=== PATIENT | male | born 2000 | race Caucasian/White ===

== ENCOUNTER 2025-03-20 15:13 | Emergency (ER) | payer BC, SELFPAY ==
--- OUTSIDE RECORDS SUMMARY | 2025-03-20 15:16 | XMS_ITS | Clinical Summary ---
Author Organization [facility] Address [address] [place] [address] Care Team Providers Care Print Production Associate Name Role Phone Freddy Bowden P.A.-C. Primary Care Provider Source Comments Patient records contain information from all sites at [facility]. For routine questions regarding patient records, call [phone] during business hours, M-F 8:00 AM - 5:00 PM Central Time. Record requests for emergency care only can be directed to [phone] at any time.[facility] Allergies No known active allergies Medications * This document contains information received from the source organization and may not represent a complete record from that organization. No known medications Active Problems Problem Noted Date Diagnosed Date Anxiety 04/22/2019 Proteinuria 08/22/2012 Abuse Drug 07/05/2012 Immunizations Immunization Administration Dates Next Due DTaP (Infanrix, Tripedia) 04/13/2003 HepA Pediatric/Adolescent 11/24/2010 HepA, Pediatric Unspecified 11/24/2010 IPV 04/13/2003 MCV4 (Menactra)(Discontinued) 11/24/2010 MMR 04/13/2003 Tdap 05/03/2010 SANKET 05/03/2010 influenza trivalent vaccine (6 months and older) (PF) 06/04/2009 Family History Medical History Relation Name Comments Healthy adult Brother Heart disease Father COPD Maternal Grandfather COPD Maternal Grandmother Healthy adult Mother Relation Name Status Comments Brother Father Maternal Grandfather Maternal Grandmother Mother Social History Tobacco Use Types Packs/Day Years Used Date Smoking Tobacco: Former Smokeless Tobacco: Never Tobacco Cessation:Counseling Given: Not Answered Humiliation, Afraid, Rape, and Kick questionnair e Answer Date Recorded Fear of Current or Ex-Partner No Emotionally Abused No 04/22/2019 Physically Abused No 04/22/2019 Sexually Abused No 04/22/2019 Hunger Vital Sign Answer Date Recorded Worried About Running Out of Food in the Last Ye ar Often true 04/22/2019 Ran Out of Food in the Last Year Sometimes true 04/22/2019 PRAPARE - Transportation Answer Date Re corded Lack of Transportation (Medical) Yes 04/22/2019 Lack of Transportation (Non-Medical) Yes 04/22/2019 Depression Answer Date Recor ded PHQ-9 Total Score (max 27) 19 11/03 Education Answer Date Recorded What is the highest level of school you have completed or the highest degree you have received? 10th grade 04/22/2019 Sex and Gender Information Value Date Recorded Sex Assigned at Not on file Legal Sex Male 4:41 AM MEDICAL CODING MANAGER Gender Identity Not on file Sexual Orientation Not on file Last Filed Vital Signs Vital Sign Reading Time Taken Comments Blood Pressure 110/68 05/03/2023 3:49 PM CDT Pulse 81 05/03/2023 3:49 PM CDT Temperature 36.2 C (97.2 F) 05/03/2023 3:49 PM CDT Respiratory Rate 20 05/03/2023 3:49 PM CDT Oxygen Saturation - - Inhaled Oxygen Concentration - - Weight 51.4 kg (113 lb 5.1 oz) 05/03/2023 3:49 P M CDT Height 162 cm (5' 3.78) 05/03/2023 3:49 PM CDT Body Mass Index 19.59 05/03/2023 3:49 PM CDT Plan of Treatment Health Maintenance Due Date Last Done Comments IPV Vaccines (2 of 3 - 4-dose series) 05/11/2003 04/13/2003 Hepatitis A Vaccines (2 of 2 - Risk 2-dose series) 05/27/2011 11/24/2010, 11/24/2010 HPV Vaccines (1 - Male 3-dose series) 2013 Hepatitis B Vaccines (1 of 3 - 19+ 3-dose series) 2017 DTaP,Tdap,and Td Vaccines (3 - Td or Tdap) 05/03/2020 05/03/2010, 04/13/2003 COVID-19 Vaccine (2023-25 season) 2024 Depression Screening (Annual PHQ-2) 09/03/2024 Influenza Vaccine (#1) 2025 06/04/2009 HIV Screening Completed 11/04/2019 Hepatitis B Screening Discontinued 11/04/2019 Hepatitis C Screening Completed 11/04/2019 Pneumococcal vaccine (0-49 years) Aged Out No longer eligible b ased on patient's age to complete this topic Procedures Procedure Name Priority Date/Time Associated Diagnosis Comments HCV AB SCRN W/REFLEX TO HCV PCR, S Routine 11/04/2019 5:17 PM MEDICAL CODING MANAGER Screening For Venereal Disease HIV-1/-2 AG AND AB SCREEN, PLASMA Routine 11/04/2019 5:17 PM MEDICAL CODING MANAGER Screening For Venereal Disease HEPATITIS B SURFACE ANTIGEN Routine 11/04/2019 5:17 PM MEDICAL CODING MANAGER Screening For Venereal Disease from Last 3 Months or Most Recently Relevant to Health Maintenance Results * HIV-1/-2 Ag and Ab Screen, Plasma (11/04/2019 5:17 PM MEDICAL CODING MANAGER) HIV Ag/Ab Screen, P Negative Negative 11/05/2019 1:55 PM MEDICAL CODING MANAGER [facility] Comment: Negative result does not rule out HIV infection. If exposure to HIV infection occurred <14 days ago, contact the laboratory to request addition of HIV-1 RNA detection / quantification test. HIV-1 p24 Ag Screen, P Negative Negative 11/05/2019 1:55 PM MEDICAL CODING MANAGER [facility] Comment: Negative result does not rule out HIV infection. If exposure to HIV infection occurred <14 days ago, contact the laboratory to request addition of HIV-1 RNA detection / quantification test. HIV-1 Ab Screen, P Negative Negative 2019 1:55 PM MEDICAL CODING MANAGER [facility] Comment: Negative result does not rule out HIV infection. If exposure to HIV infection occurred <14 days ago, contact the laboratory to request addition of HIV-1 RNA detection / quantification test. HIV-2 Ab Screen, P Negative Negative 2019 1:55 PM MEDICAL CODING MANAGER [facility] Comment: Negative result does not rule out HIV infection. If exposure to HIV infection occurred <14 days ago, contact the laboratory to request addition of HIV-1 RNA detection / quantification test. Blood (Blood, Venous) 11/04/2019 5:17 PM MEDICAL CODING MANAGER 11/05/2019 11:16 AM MEDICAL CODING MANAGER Javi Arevalo M.D. LAB MICROBIOLOG Y - BLOOD ORDERABLES Final Result Performing Organization Address City/[facility]/ZIP Co de Phone Number [facility] [address] [place] [id number], [place] [facility] [address] [place] [id number] * HCV Ab Scrn w/Reflex to HCV PCR, Serum (11/04/2019 5:17 PM MEDICAL CODING MANAGER) HCV Ab Screen, S Negative Negative 11/05/2019 8:06 AM MEDICAL CODING MANAGER [facility] Comment:Wksbck-dv-[id number] rat io is <1.00. Blood (Blood, Venous) 11/04/2019 5:17 PM MEDICAL CODING MANAGER 11/05/2019 6:54 AM MEDICAL CODING MANAGER Javi Arevalo M.D. LAB MICROBIOLOG Y - BLOOD ORDERABLES Final Result Performing Organization Address City/[facility] Co de Phone Number [facility] [address] [place] [address] [facility] Dept. of Laboratory Medicine and Pathology [address] [place] [address] * Hepatitis B Surface Antigen (11/04/2019 5:17 PM MEDICAL CODING MANAGER) HBs Antigen, S Nonreactive Nonreactive 11/04/19 20 10:12 PM MEDICAL CODING MANAGER [facility] Comment: Biotin has been identified by the vinyl dipper as a potential interfering substance. Higher concentrations of biotin may be found in multivitamins, hair/nail supplements, and workout supplements. If the result does not match clinical observations, repeat testing after patient refrains from the use of supplements for at least 12 hours. Blood (Blood, Venous) 11/04/2019 5:17 PM MEDICAL CODING MANAGER 11/04/2019 9:45 PM MEDICAL CODING MANAGER Javi Arevalo M.D. LAB MICROBIOLOG Y - BLOOD ORDERABLES Final Result [facility] [address] [place] [address], [facility] [address] [place] [address] from Last 3 Months or Most Recently Relevant to Health Maintenance Insurance [facility] Care Teams Print Production Associate Relationship Specialty Start Date End Date Freddy Bowden P.A.-C. [address] [facility] [place] [id number] PCP - General 02/15/17
--- OUTSIDE RECORDS SUMMARY | 2025-03-20 15:16 | XMS_ITS | Clinical Summary ---
Author Organization [employer] [facility] Address [address] [place] [id number] Care Team Providers Care Capsule Filler Name Role Phone Freddy Bowden Unavailable [phone] Freddy Bowden Primary Care Provider [phone] Allergies No known active allergies Medications metoclopramide HCl (REGLAN) 10 mg tabletIndication s:Nonintractable headache, unspecified chronicity pattern, unspecified headache type,Nausea Take 1 Tablet (10 mg) by mouth every 6 hours if needed for Nausea/Vomi ting (or headache). 30 Tablet 12/23/2021 Active ALBUTEROL, REFILL, INHL Inhale by mouth. Active Family History Medical History Relation Name Comments Asthma Brother 1 Inhaler and neb ulizer care. Asthma Brother 2 Inhaler and neb ulizer care. No Known Problems Father No Known Problems Mother Relation Name Status Comments Brother 1 Alive Brother 2 Alive Father Alive Mother Alive Social History Tobacco Use Types Packs/Day Years Used Date Smoking Tobacco: Every Day Cigarettes Smokeless Tobacco: Never Tobacco Cessation:Ready to Q uit: No; Counseling Given: Yes Comments:Vaping. Alcohol Use Standard Drinks/Week Comments Not Asked 0 (1 standard drink = 0.6 oz pur e alcohol) Sex and Gender Information Value Date Recorded Sex Assigned at Not on file Legal Sex Male 6:30 AM WEB OFFSET PRESS FEEDER Gender Identity Not on file Sexual Orientation Not on file Obstetrics History Last Filed Vital Signs Vital Sign Reading Time Taken Comments Blood Pressure 147/99 09/08/2023 1:39 AM WEB OFFSET PRESS FEEDER Pulse 124 09/08/2023 1:39 AM WEB OFFSET PRESS FEEDER Temperature 36.8 C (98.3 F) 09/08/2023 1:39 AM WEB OFFSET PRESS FEEDER Respiratory Rate 16 09/08/2023 1:39 AM WEB OFFSET PRESS FEEDER Oxygen Saturation 94% 09/08/2023 1:39 AM WEB OFFSET PRESS FEEDER Inhaled Oxygen Concentration - - Weight 54.4 kg (120 lb) 09/08/2023 1:39 AM WEB OFFSET PRESS FEEDER Height 167.6 cm (5' 6) 09/08/2023 1:39 AM WEB OFFSET PRESS FEEDER Body Mass Index 19.37 09/08/2023 1:39 AM WEB OFFSET PRESS FEEDER Plan of Treatment Health Maintenance Due Date Last Done Comments Tetanus booster 2009 Depression screening for age 12+ 2010 HIV for age 15-65 2013 HPV series for age 9-26 (1 - Male 3-dose series) 2013 BMI (ht and wt on same day) for age 18+ 2016 Hepatitis C screening for ag e 18-79 2016 Hepatitis B series for 19+ ( 1 of 3 - 19+ 3-dose series) 2017 COVID-19 vaccine series ( - season) 2024 Influenza Vaccine (#1) 2025 Pneumococcal series for age 6-49 Aged Out No longer eligible based on patient's age to complete this topic Insurance [id number] [place] [id number] [facility] * Guarantor: PATRICK BERNARD Account Type Relation to Patient Date of Phone Billing Address Personal/Family Mother [id number] [place] [id number] MEDICAID Care Teams Capsule Filler Relationship Specialty Start Date End Date Freddy Bowden PA [address] [place] [address] [place] [address] PCP - General Physician Accounts Payable Bookkeeper 09/08/23 Freddy Bowden PA 04/14/14
[2025-03-20 15:34] VITALS: BP 146/89; PULSE 90; RESP 20; TEMP 37.4; O2SAT 99; BMI 20.2
--- NOTE | 2025-03-20 16:24 | CRLHL7_ITS ---
For Patients: As a result of the Century Cures Act, medical imaging exams and procedure reports are released immediately into your electronic medical record. You may view this report before your referring provider. If you have questions, please contact your health care provider. INDICATION: Left abdominal and flank pain. TECHNIQUE: CT abdomen and pelvis acquired with 56 cc Omnipaque 350 IV contrast. COMPARISON: None. FINDINGS: Mild ground-glass and clustered nodularity within the left lung base, likely aspiration. The liver is unremarkable. Gallbladder is unremarkable. No biliary ductal dilatation. Spleen is unremarkable. The pancreas is unremarkable. Adrenal glands are unremarkable. The kidneys are symmetric in enhancement without hydronephrosis or significant perinephric stranding. The urinary bladder is distended. The bowel is unremarkable. The appendix is nondilated. No free air. No ascites. No organized drainable fluid collection is seen. No lymphadenopathy. Prostate is unremarkable. The aorta is normal in caliber. Bone windows demonstrate no suspicious lytic or sclerotic lesion. IMPRESSION: 1. Mild ground-glass and clustered nodularity within the visualized left lung base. This likely represents aspiration. 2. No gross acute finding within the abdomen or pelvis. Please note that all CT scans at this facility use dose modulation, iterative reconstruction, and/or weight-based dosing when appropriate to reduce radiation dose to as low as reasonably achievable. Dictated by Merlin Moore MD @ 03/20/2025 5:31:00 PM (Electronically Signed)
--- NOTE | 2025-03-20 16:25 | ED.GENADULT ---
HPI - General Adult General Chief complaint: Abdominal Pain Stated complaint: Severe Stomach pain moving to the back Time Seen by Provider: 03/20/25 15:56 History of Present Illness HPI narrative: This 24-year-old male comes in reporting abdominal pain that began a couple days ago. He states that it has become more constant and severe. He did not sleep well last night. The pain seems to be worse when taking food. He states that the pain is in his left abdomen and seems to radiate somewhat to his back. He has had a little bit of diarrhea but no vomiting. He states that the pain is worse with movement. He does not report any dysuria symptoms. Related Data Previous Rx's ?Medication ?Instructions ?Recorded ketorolac 10 mg tablet 10 mg PO TID 5 days #15 tabs 03/20/25 Allergies Allergy/AdvReac Type Severity Reaction Status Date / Time No Known Drug Allergies Allergy Verified 03/20/25 15:33 Review of Systems Status of ROS: Reports: 10 or more systems reviewed and unremarkable except as noted in History and below Narrative: Constitutional: No fevers, no weight gain or loss. Eyes: No discharge. No vision changes. HENT: No congestion, no sore throat, no ear pain. Cardiovascular: No chest pain, no palpitations. Respiratory: No shortness of breath, no wheezes, no cough. Gastrointestinal: Left-sided abdominal pain that radiates to his left back. No vomiting. Some diarrhea. Genitourinary: No dysuria, no hematuria. Musculoskeletal: Normal range of motion. Skin: No rashes, no pruritis. Neurological: No dizziness, weakness, sensory change, speech change. Endo/Heme/Allergies: No bruising or bleeding. No polydipsia. Pysch: no suicidality, no anxiety, no insomnia. All other systems reviewed and are negative. PFS PFS Social History Smoking Status: Never smoker Do you use any of these nicotine containing products: Vaping Products How often do you have a drink containing alcohol: monthly or less AUDIT-C Alcohol total score: 1 Non-prescribed substance use: denies use Exam Narrative: Exam Narrative: Constitutional: Well-developed, well-nourished, no acute distress. HEENT: Normocephalic, atraumatic. Neck: Normal range of motion. Nontender. Supple. Heart: Regular. No murmurs. Normal rate. Intact distal pulses. Lungs: Clear to auscultation. No chest discomfort. No wheezes, rhonchi, or rales. Abdomen: Normal bowel sounds. Left-sided abdominal pain. No rebound tenderness. Genitalia: Deferred. Back: No midline tenderness. Normal range of motion. Extremities: Normal range of motion. No injury. Skin: Intact. No rash. Warm. No erythema or pallor. Neurologic: No altered sensation. No weakness. Alert and oriented. Psychiatric: No suicidality. No anxiety or depression. No insomnia. Nursing notes and vitals signs are reviewed. Const: Vital Signs, click to edit/add: Vital Signs - 24 hr 03/20/25 15:34 Temperature 99.3 F Pulse Rate [Pulse Oximeter] 90 Respiratory Rate 20 Blood Pressure [Ri ght Upper Arm] 146/89 H Pulse Oximetry 99 Oxygen Delivery Me thod Room Air Course Vital Signs Vital signs: Initial Vital Signs Temperature 99.3 F 03/20/25 15:34 Temperature Source Temporal Artery Scan 03/20/25 15:34 Pulse Rate 90 03/20/25 15:34 Respiratory Rate 20 03/20/25 15:34 Blood Pressure 146/89 H 03/20/25 15:34 Blood Pressure Mean 108 H 03/20/25 15:34 Pulse Oximetry 99 03/20/25 15:34 Oxygen Delivery Method Room Air 03/20/25 15:34 Vital Signs Temperature 99.3 F 03/20/25 15:34 Pulse Rate 90 03/20/25 15:34 Respiratory Rate 20 03/20/25 15:34 Blood Pressure 146/89 H 03/20/25 15:34 Pulse Oximetry 99 03/20/25 15:34 Oxygen Delivery Method Room Air 03/20/25 15:34 Temperature 99.3 F 03/20/25 15:34 Pulse Rate 90 03/20/25 15:34 Respiratory Rate 20 03/20/25 15:34 Blood Pressure 146/89 H 03/20/25 15:34 Pulse Oximetry 99 03/20/25 15:34 Oxygen Delivery Method Room Air 03/20/25 15:34 Medications Administered Medications: Discontinued Medications Generic Name Dose Route Start Last Admin Trade Name Freq PRN Reason Stop Dose Admin Ketorolac Tromethamine 15 mg 03/20/25 16:45 03/20/25 17:04 Ketorolac 15 Mg/Ml Inj IVP 03/20/25 16:46 15 mg ONCE ONE Administration Medical Decision Making MDM Narrative Medical decision making narrative: This patient comes in with left-sided abdominal pain as described above. I did order CT scan with IV contrast. This returned with no acute findings to explain his pain. Additionally lab results are also reassuring. His lipase is in normal range. His liver enzymes are a bit elevated and the patient admits that he does drink alcohol. The patient received an IV dose of Toradol which brought some relief to his symptoms. He is okay to be discharged home. I did provide a prescription for tablets of Toradol. Lab Data Labs: Lab Results 03/20/25 Range/Units 16:49 WBC 8.07 (4.50-11.00) K/uL RBC 4.62 (4.30-5.90) m/uL Hgb 15.1 (13.5-17.5) gm/dL Hct 44.2 (37.0-53.0) % MCV 96 (80-100) fL MCH 33 (26-34) pg MCHC 34 (32-36) gm/dL RDW Coeff of Eagle 11.9 (11.5-15.5) % Plt Count 339 (140-440) K/uL Neut % (Auto) 70.3 (42.0-72.0) % Lymph % (Auto) 21.3 (20-44) % Gladwin % (Auto) 6.9 (0.0-11.0) % Eos % (Auto) 0.2 (0.0-7.0) % Baso % (Auto) 0.4 (0.0-3.0) % Neut # (Auto) 5.67 (1.7-7.0) K/uL Lymph # (Auto) 1.72 (0.90-2.90) K/uL Gladwin # (Auto) 0.60 (0.00-0.90) K/UL Eos # (Auto) 0.02 (0.00-0.50) K/uL Baso # (Auto) 0.03 (0.00-0.30) K/uL Abs Immat Gran (auto) 0.07 (0.00-0.30) K/uL Imm/Tot Granulo (auto) 0.9 % Sodium 137 (135-149) mmol/L Potassium 4.5 (3.6-5.1) mmol/L Chloride 100 (96-114) mmol/L Carbon Dioxide 27 (20-32) mmol/L Anion Gap 10 (7-15) mEq/L BUN 7 (5-24) mg/dL Creatinine 0.8 (0.5-1.5) mg/dL Estimated Creat Clear 102.34 Estimated GFR 125 ml/min Glucose 115 (60-115) mg/dL Calcium 9.7 (8.4-10.6) mg/dL Total Bilirubin 1.2 (0.1-1.5) mg/dL Direct Bilirubin 0.5 (0.0-0.5) mg/dL AST 103 H (12-35) U/L ALT 97 H (4-50) U/L Alkaline Phosphatase 89 (40-150) U/L Total Protein 9.3 H (6.0-8.3) g/dL Albumin 5.1 H (3.3-5.0) g/dL Lipase 52 (23-300) U/L Discharge Plan Discharge Clinical Impression: Abdominal pain Patient Disposition: Home, Self-Care Condition: Stable Additional Instructions: Take medication as needed and indicated. Use [id number] fiber additives also such as Metamucil, Citrucel, or Benefiber. Follow up with MD return if worsening. Prescriptions: New ketorolac 10 mg tablet 10 mg PO TID 5 Days Qty: 15 0RF Follow Up/Referrals: Provider,Not a Local [Primary Care Provider, Family Practice] Stand Alone Forms: MyHealth Info Instructions
[2025-03-20 16:57] LABS: Hematocrit 44.2 % (37.0-53.0); Hemoglobin* 15.1 gm/dL (13.5-17.5); Immature Granulocytes Abs Auto 0.07 K/uL (0.00-0.30); Immature Granulocytes Pct Auto 0.9 %; Lymphocytes Absolute Auto 1.72 K/uL (0.90-2.90); Mean Corpuscular HGB Conc 34 gm/dL (32-36); Mean Corpuscular Hemoglobin 33 pg (26-34); Mean Corpuscular Volume 96 fL (80-100); RDW Coefficient of Variation % 11.9 % (11.5-15.5); Red Blood Count 4.62 m/uL (4.30-5.90); White Blood Count* 8.07 K/uL (4.50-11.00)
[2025-03-20 17:16] LABS: Slide Review Reflex No
[2025-03-20 17:23] LABS: Albumin* 5.1 g/dL (3.3-5.0); Chloride* 100 mmol/L (96-114)
[2025-03-20 17:24] LABS: Potassium* 4.5 mmol/L (3.6-5.1); Sodium* 137 mmol/L (135-149)
[2025-03-20 17:26] LABS: Alanine Aminotransferase* 97 U/L (4-50); Alkaline Phosphatase* 89 U/L (40-150); Anion Gap 10 mEq/L (7-15); Aspartate Amino Transferase* 103 U/L (12-35); Bilirubin Direct* 0.5 mg/dL (0.0-0.5); Bilirubin Total* 1.2 mg/dL (0.1-1.5); Blood Urea Nitrogen* 7 mg/dL (5-24); Carbon Dioxide* 27 mmol/L (20-32); Creatinine* 0.8 mg/dL (0.5-1.5); Est. Creatinine Clearance* 102.34; Estimated Glomerular Filt Rate 125 ml/min; Total Protein* 9.3 g/dL (6.0-8.3)
[2025-03-20 17:27] LABS: Calcium* 9.7 mg/dL (8.4-10.6); Glucose* 115 mg/dL (60-115)
[2025-03-20 18:09] VITALS: BP 125/84; PULSE 72; RESP 18; TEMP 37.1; O2SAT 98
== END 2025-03-20 18:12 | disposition home or self-care (01) ==
PROVIDERS: Emergency Provider Emergency Medicine Emergency Medical Services
DX: R10.9 Unspecified abdominal pain (principal)
CPT/HCPCS: 36415; 74177; 80048; 80076; 83690; 85025; 96374; 99284; 99285; J1885; Q9967